=== PATIENT | male | born 1990 | race African-American/Black ===

== ENCOUNTER 2024-06-04 15:24 | Observation (INO) | payer OTHER ==
[2024-06-04] MEDS ORDERED: SODIUM CHLORIDE 1,000 ML IV SCH (15:30)
[2024-06-04 15:58] VITALS: BMI 39.7
[2024-06-04 16:10] LABS: BASO % 0.5 % (0-2.0); EOS % 0.2 % (0-4.5); HEMATOCRIT 45.5 % (35.4-49); HEMOGLOBIN 15.2 GM/dL (11.7-16.9); LYMPH % 13.3 % (8-40); MCH 28.9 pg (25.7-33.7); MCHC 33.4 g/dl (32.0-35.9); MEAN CELL VOLUME 86.5 fl (80-96); MEAN PLT VOLUME 9.2 fl (7.5-11.1); MONO % 9.3 % (3.8-10.2); NEUT % 76.7 % (42.8-82.8); PLATELET COUNT 354 10^3/uL (134-434); RBC 5.26 M/mm3 (4.00-5.60); RDW 14.8 % (11.9-15.9); WHITE BLOOD COUNT 10.5 K/mm3 (4.0-10.0)
[2024-06-04 16:18] LABS: POTASSIUM 3.8 mmol/L (3.5-5.1)
[2024-06-04 16:19] LABS: INR 1.06 (0.83-1.09); PROTHROMBIN TIME (PATIENT) 12.2 SEC (9.7-13.0)
[2024-06-04 16:20] LABS: CALCIUM 9.3 mg/dL (8.5-10.1)
[2024-06-04 16:21] LABS: ALBUMIN 3.8 g/dl (3.4-5.0)
[2024-06-04 16:22] LABS: ACTIVATED PTT 28.9 SECONDS (25.2-36.5); BLOOD UREA NITROGEN 9.9 mg/dL (7-18)
[2024-06-04 16:25] LABS: BILIRUBIN,TOTAL 0.4 mg/dL (0.2-1)
[2024-06-04 16:26] LABS: TOT PROT 7.6 g/dl (6.4-8.2)
[2024-06-04] MEDS ORDERED: LORazepam 1 MG TABLET ONE (16:55)
[2024-06-04] MEDS: LORazepam 2 MG TABLET PO ONE (16:59)
[2024-06-04] MEDS ORDERED: amLODIPine BESYLATE 10 MG TABLET (FP) ONE (18:21)
[2024-06-04] MEDS: SODIUM CHLORIDE 1,000 ML IV SCH (18:54)
[2024-06-04] MEDS: amLODIPine BESYLATE 10 MG TABLET (FP) PO SCH (18:54)
[2024-06-05 07:30] LABS: BASO % 0.4 % (0-2.0); EOS % 0.9 % (0-4.5); HEMATOCRIT 45.2 % (35.4-49); HEMOGLOBIN 15.1 GM/dL (11.7-16.9); MCHC 33.3 g/dl (32.0-35.9); MEAN PLT VOLUME 9.3 fl (7.5-11.1); MONO % 10.8 % (3.8-10.2); NEUT % 68.9 % (42.8-82.8); PLATELET COUNT 339 10^3/uL (134-434); RBC 5.19 M/mm3 (4.00-5.60); RDW 14.4 % (11.9-15.9); WHITE BLOOD COUNT 7.3 K/mm3 (4.0-10.0)
[2024-06-05 07:35] LABS: POTASSIUM 3.6 mmol/L (3.5-5.1)
[2024-06-05 07:39] LABS: ALBUMIN 3.3 g/dl (3.4-5.0); BLOOD UREA NITROGEN 8.3 mg/dL (7-18); MAGNESIUM 1.3 mg/dL (1.8-2.4)
[2024-06-05 07:42] LABS: PHOSPHOROUS 3.2 mg/dL (2.5-4.9)
[2024-06-05 07:43] LABS: BILIRUBIN,TOTAL 0.5 mg/dL (0.2-1)
[2024-06-05 07:44] LABS: TOT PROT 6.9 g/dl (6.4-8.2)
[2024-06-05 09:09] VITALS: PULSE 103; RESP 22
[2024-06-05 17:33] VITALS: BP 149/95; TEMP 99
[2024-06-05] MEDS ORDERED: MAGNESIUM SULFATE IN WATER 2 GM/50 ML IVPB IVPB ONE (18:20)
[2024-06-05] MEDS ORDERED: THIAMINE 100 MG TABLET ONE (18:21)
[2024-06-05] MEDS ORDERED: FOLIC ACID 1 MG TABLET (FP) ONE (18:21)
[2024-06-05] MEDS: FOLIC ACID 1 MG TABLET (FP) PO SCH (18:23)
[2024-06-05] MEDS: MAGNESIUM SULFATE IN WATER 2 GM/50 ML IVPB IVPB ONE (18:23)
[2024-06-05] MEDS: THIAMINE 100 MG TABLET PO SCH (18:23)
== END 2024-06-05 19:14 | disposition home or self-care (01) ==
LOC: JER 15:24 → JERBED 17:20
PROVIDERS: ADMIT Internal Medicine; ATTEND Internal Medicine
PROC: 3E0337Z Introduction of Electrolytic and Water Balance Substance into Peripheral Vein, Percutaneous Approach (ICD-10-PCS; principal; 2024-06-04)
DX: F41.0 Panic disorder [episodic paroxysmal anxiety] (principal); I10 Essential (primary) hypertension; R74.01 Elevation of levels of liver transaminase levels; M62.82 Rhabdomyolysis; E78.5 Hyperlipidemia, unspecified
CPT/HCPCS: 0241U-QW; 36415; 70450-TC; 70496-TC; 70498-TC; 76705-TC; 80053; 80061; 82550; 82553; 83036; 83605; 83735; 84100; 84484; 85025; 85610; 85730; 86705; 86708; 87517; 93005; 93010; 96360; 99285-25; G0378